=== PATIENT | female | born 1965 | race Caucasian/White ===

== ENCOUNTER 2024-06-20 11:50 | Emergency (ER) | payer MEDICAID, OTHER ==
[~2024-06-20] VITALS: Ht 152.4 cm; Wt 68.0 kg
[2024-06-20 12:23] VITALS: O2SAT 98
[2024-06-20 12:39] LABS: BASOPHILS % 0.2 % (0.0-2.0); EOSINOPHILS % 0.1 % (0.0-5.0); HEMATOCRIT. 39.5 % (36.0-48.0); LYMPHOCYTES % 13.1 % (20.0-50.0); MEAN CORPUSCULAR HEMOGLOBIN 30.4 pg (28.0-32.0); MEAN CORPUSCULAR VOLUME 91.9 fL (81.0-99.0); MEAN PLATELET VOLUME 9.6 fl (7.4-10.4); MONOCYTES % 4.2 % (2.0-8.0); NEUTROPHILS % 82.4 % (40.0-76.0); PLATELET 194 x1000/uL (130-400); RED CELL DISTRIBUTION WIDTH 13.5 % (11.6-14.6); WHITE BLOOD COUNT 15.1 x1000/uL (4.5-11.0)
[2024-06-20 12:46] LABS: CHLORIDE 102 mEq/L (98-107); POTASSIUM 3.4 mEq/L (3.5-5.1); SODIUM 135 mEq/L (136-145)
[2024-06-20 12:47] LABS: CALCIUM 9.4 mg/dL (8.7-10.4); CARBON DIOXIDE 27 mEq/L (21-32)
[2024-06-20 12:52] LABS: CREATININE 0.7 mg/dL (0.6-1.0); GLUCOSE 120 mg/dL (70-105); UREA NITROGEN BLOOD 8 mg/dL (9-23)
[2024-06-20 12:53] LABS: TROPONIN I HIGH SENSITIVITY 18 ng/L (3.0-34)
[2024-06-20 12:54] LABS: ALANINE AMINOTRANSFERASE 41 IU/L (10-49); ALBUMIN 4.9 g/dL (3.2-4.8); ASPARTATE AMINOTRANSFERASE 29 IU/L (<34); BILIRUBIN DIRECT 0.2 mg/dL (<=3.0); BILIRUBIN TOTAL 0.9 mg/dL (0.1-1.0); PROTEIN TOTAL 8.3 g/dL (6.0-8.3)
[2024-06-20] MEDS: IOHEXOL-350 100 ML BOTTLE ONE (14:04)
[2024-06-20 15:13] LABS: TROPONIN I HIGH SENSITIVITY 18 ng/L (3.0-34)
[2024-06-20 22:58] VITALS: BP 95/61; PULSE 73; RESP 16; TEMP 36.61404; O2SAT 98
== END 2024-06-20 23:38 | disposition short-term general hospital (02) ==
LOC: ER 12:08 → EDBEDREQTM 13:42 → EDBEDREQ 13:42 → ER 23:38
DX: R51.9 Headache, unspecified (principal); R07.89 Other chest pain; R42 Dizziness and giddiness
CPT/HCPCS: 80076; 80048; 82962; 85025; 84484; 36415; 71045; 70496; 70498; 70450; 93005; 99291; Q9967; Z7610 ×2